=== PATIENT | female | born 2000 | race Caucasian/White ===

== ENCOUNTER 2024-07-09 20:29 | Emergency (ER) | payer OTHER, SELFPAY ==
--- NOTE | ~2024-07-09 | XR_ITS ---
XR hand LT min 3V Ordering provider: Yoli Krishnan PA-C History: . Jammed in door, swelling/ 3rd digit left hand . Comparison: None. FINDINGS: BONES: No acute fracture or dislocation. JOINT SPACES: Well maintained. SOFT TISSUES: Unremarkable. IMPRESSION: No acute osseous abnormality left hand. Reviewed, dictated and finalized at location A.
[2024-07-09 20:50] VITALS: BP 141/94; PULSE 95; RESP 20; TEMP 36.6; O2SAT 100
--- NOTE | 2024-07-09 21:10 | ED_ITS ---
HPI - Extremity Injury (Upper) General Chief Complaint: Extremity Injury, Upper Stated Complaint: Left middle finger jam Time Seen by Provider: 07/09/24 20:57 History of Present Illness HPI narrative: This is a 23-year-old female with no significant past medical history who presents to the ED after jamming her left ring finger into a door frame. She was able to remove immediately and does not have any limited range of motion. She had some minor swelling but feels like she has good pain control without any analgesics at this time. Denies any other symptoms or other injuries. No Ringer foreign body retained on the finger. No nail involvement. Related Data Allergies Allergy/AdvReac Type Severity Reaction Status Date / Time No Known Allergies Allergy Verified 07/09/24 20:30 Review of Systems Review of Systems: As reviewed above in HPI Exam Narrative: GENERAL: [Well-appearing, well-nourished, and in no acute distress.] HEAD: [Normocephalic, atraumatic.] EYES: [PERRLA and EOMI.] ENT: Nares clear, no rhinorrhea or epistaxis. Mucous membranes moist. NECK: Supple. CHEST: [Clear to auscultation. No respiratory distress.] HEART: [Regular rate and rhythm]. No murmur heard. [Normal peripheral pulses.] ABDOMEN: [Soft, nondistended], [nontender], [No rigidity or guarding] EXTREMITIES: Normal range of motion. [No edema.] Able to flex and extend at the MCP, PIP and PIP joint full strength. 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 Minor swelling on the dorsal aspect without any circumferential swelling or difficulty ranging. SKIN: Warm, dry, no rash. NEURO: [No focal deficits]. Alert and oriented [x3.] PSYCH: [Normal mood and affect.] Course Vital Signs Vital signs: Vital Signs Temperature 36.6 C 07/09/24 20:50 Pulse Rate 95 07/09/24 20:50 Respiratory Rate 20 07/09/24 20:50 Blood Pressure 141/94 H 07/09/24 20:50 Pulse Oximetry 100 07/09/24 20:50 Temperature 36.6 C 07/09/24 20:50 Pulse Rate 95 07/09/24 20:50 Respiratory Rate 20 07/09/24 20:50 Blood Pressure 141/94 H 07/09/24 20:50 Pulse Oximetry 100 07/09/24 20:50 Discharge Plan Discharge Clinical Impression: Finger sprain Patient Disposition: Home, Self-Care Condition: Stable Instructions: Antibiotic Form Additional Instructions: your x-ray was very reassuring and you have no breaks or fractures. Good full range of motion of the digit and can be safely discharge home at this time. Please take Tylenol and Motrin as needed for continued pain and swelling. Follow-up/Referrals: PHYSICIAN NOT ON STAFF,NONSTAFF [Primary Care Provider] - Time of Disposition: 21:20
[2024-07-09] MEDS: IBUPROFEN 400 MG TABLET 800 MG PO (21:21)
== END 2024-07-09 21:45 | disposition home or self-care (01) ==
LOC: ANHED 21:30
PROVIDERS: Emergency Provider Student in an Organized Health Care Education/Training Program
DX: S63.615A Unspecified sprain of left ring finger, initial encounter (principal); W22.09XA Striking against other stationary object, initial encounter
CPT/HCPCS: 73130; 99283; A9270